=== PATIENT | male | born 1975 | race Two or more races ===

== ENCOUNTER 2024-10-28 15:08 | Emergency (ER) | payer MEDICAID, SELFPAY ==
[2024-10-28 15:29] VITALS: BP 143/89; PULSE 79; RESP 18; TEMP 37.2; O2SAT 98
--- NOTE | 2024-10-28 15:35 | XR_ITS ---
Examination: PA lateral chest 2 views TECHNIQUE: Upright PA lateral chest 2 views Exam date and time: October 28, 2024 1548 hours Comparison February 07, 2021 INDICATIONS: Coughing today FINDINGS: Normal heart size Accentuation basilar bronchovascular markings No lobar pneumonia IMPRESSION: Mild basilar bronchitis pattern
--- NOTE | 2024-10-28 15:59 | PD.EDURI ---
Upper Respiratory Inf. RME/HPI General Chief Complaint: Chest Pain Stated Complaint: CHEST, BACK, THROAT PAIN, FEVER, COUGH Time Seen by Provider: 10/28/24 15:13 Arrival date/time: 10/28/24 15:08 49-year-old male presents emergency department with complaints of cough, congestion, sore throat ongoing for the last 2 days patient reports persistent cough Limitations: no limitations Related Data Previous Rx's ?Medication ?Instructions ?Recorded amoxicillin 875 mg-potassium 1 tab PO Q12H #10 tabs 02/08/21 clavulanate 125 mg tablet (Augmentin) albuterol sulfate 90 mcg/actuation 2 puff inhalation Q6H PRN 10/28/24 aerosol inhaler (Ventolin HFA) shortness of breath or wheezing #8.5 grams benzonatate 100 mg capsule 100 mg PO TID #14 caps 10/28/24 prednisone 10 mg tablet 30 mg (3 x 10 mg) PO BID 3 days 10/28/24 #18 tabs Allergies Allergy/AdvReac Type Severity Reaction Status Date / Time No Known Allergies Allergy Verified 10/28/24 15:09 Review of Systems Review of Systems Systems Reviewed: All systems reviewed, normal except as documented Constitutional Constitutional: Reports system reviewed and no additional complaints, except as documented, Denies fever(s) and Denies headache(s) Eyes Eyes: Reports system reviewed and no additional complaints, except as documented and Denies blurry vision ENT Ears, Nose, Mouth, and Throat: Reports system reviewed and no additional complaints, except as documented, Denies headache(s), Reports nasal congestion and Reports nasal discharge Cardiovascular Cardiovascular: Reports system reviewed and no additional complaints, except as documented, Denies chest pain and Denies dyspnea Respiratory Respiratory: Reports system reviewed and no additional complaints, except as documented, Reports chest congestion, Reports cough and Denies dyspnea Gastrointestinal Gastrointestinal: Reports system reviewed and no additional complaints, except as documented and Denies abdominal pain Integumentary/Breasts Skin/Breast: Reports system reviewed and no additional complaints, except as documented and Denies rash Neurologic Neurologic: Reports system reviewed and no additional complaints, except as documented, Reports as per HPI and Denies headache(s) Past Medical History Past Medical History NEUROLOGIC: Negative Neurological Disorders CARDIAC: Negative Cardiac Disorders ED Exam General Limitations: Present no limitations General appearance: Present alert and in no apparent distress Head Head exam: Present atraumatic Eye Eye exam: Present normal appearance, PERRL and EOMI; Absent conjunctival injection ENT ENT exam: Present normal exam, normal oropharynx and mucous membranes moist Neck Neck exam: Present normal inspection, full ROM and trachea midline Chest Chest inspection: Present normal inspection and symmetric chest wall rise Respiratory Respiratory exam: Present normal lung sounds bilaterally; Absent respiratory distress, wheezes, stridor or accessory muscle use Cardiovascular Cardiovascular exam: Present regular rate, normal rhythm and normal heart sounds Abdominal Exam Abdominal exam: Present soft and normal bowel sounds; Absent distention, tenderness, guarding, rebound or rigidity Extremities Exam Extremities exam: Present normal inspection and full ROM Back Exam Back exam: Present normal inspection and full ROM Neurological Exam Neurological exam: Present alert, oriented X3 and CN II-XII intact Psychiatric Psychiatric exam: Present normal affect and normal mood Skin Skin exam: Present warm, dry, intact and normal color Course Quality Measures none Orders Category Date Time Status Bedside Influenza A&B Antigen Test NOW Care 10/28/24 15:35 Completed XR chest 2V Stat Exams 10/28/24 15:35 Completed Vital Signs Vital signs: Vital Signs Temperature 99 F 10/28/24 15:29 Pulse Rate 79 10/28/24 15:29 Respiratory Rate 18 10/28/24 15:29 Blood Pressure 143/89 H 10/28/24 15:29 Pulse Oximetry (%) 98 10/28/24 15:29 Oxygen Delivery Method Room Air 10/28/24 15:29 Upper Respiratory Infection MDM Narrative MDM Narrative:: 49-year-old male with no significant medical problems presents emergency department with complaints of cough, congestion, sore throat ongoing for the last 2 days patient reports persistent cough On exam patient does not appear ill or toxic in no acute distress Chest x-ray obtained consistent with viral illness/bronchitis Patient checked for influenza which came back positive Symptoms are consistent with influenza As patient has no difficulty breathing patient be discharged home at this time Patient discharged home in no distress to follow-up with primary care doctor in the next 24 to 48 hours and for any worsening symptoms to return to the ER immediately Patient data External records reviewed:: [facility] previous records Clinical information provided by:: patient Social determinants that could affect healthcare access:: none Patient has the following chronic illnesses:: None How is presenting disease/condition affected by chronic disease/condition?: no chronic disease Evaluation data The following diagnostics were reviewed and interpreted by me:: lab results and radiology exam(s) Lab and/or radiology exams considered but not ordered:: Labs and radiology obtained Interpretation Summary: By me Medications / Prescriptions Medications or Prescriptions considered but not ordered:: Given Medication administrations:: Given Consultations Consultation(s) initiated? (list below): No Diagnosis Upper Respiratory Differential Diagnosis: upper respiratory infection, viral infection, bronchitis and pharyngitis Most likely diagnosis given after review of the tests above:: Influenza Admission Indicated Admission indicated?: not indicated Admission Request Was there a request for admission?: No Disposition Plan Disposition Plan: Discharge Discharge Attestation Discharge Attestation: The patient and all family members were given an opportunity to ask questions and understood the discharge instructions. Discharge instructions specifically effects, indications for sooner follow up or return to the emergency department, and the expected course of current diagnosis. Patient condition: Stable Discharge Plan Plan Patient Disposition: HOME (Self Care) Prescriptions/Referrals Prescriptions/Med Rec: New prednisone 10 mg tablet 30 mg PO BID 3 Days Qty: 18 0RF benzonatate 100 mg capsule 100 mg PO TID Qty: 14 0RF albuterol sulfate [Ventolin HFA] 90 mcg/actuation HFA aerosol inhaler 2 puff inhalation Q6H PRN (Reason: shortness of breath or wheezing) Qty: 8.5 0RF No Action amoxicillin-pot clavulanate [Augmentin] 875-125 mg tablet 1 tab PO Q12H Qty: 10 0RF Problem List Clinical Impression: Influenza A Patient/Caregiver Discharge Instructions Education Materials: ED Influenza (Adult) Additional Instructions: Please follow up with your primary care doctor in the next 24-48hrs for any worsening symptoms return here immediately Print Language: Estonian Stand Alone Forms: [facility] Award Info., Patient Portal Info Letter PA/CAR COUPLER Supervising Physician PA/CAR COUPLER Supervising Physician: Dr Whyte
== END 2024-10-28 16:27 | disposition home or self-care (01) ==
LOC: SERX 16:00
PROVIDERS: Emergency Provider Emergency Medicine; PCP Registered Nurse
DX: J10.1 Influenza due to other identified influenza virus with other respiratory manifestations (principal)
CPT/HCPCS: 71046; 87400; 99283